=== PATIENT | female | born 1995 | race Hispanic/Latino ===

== ENCOUNTER 2022-03-12 06:47 | Day surgery (SDC) | payer OTHER ==
[~2022-03-12] VITALS: Ht 162.6 cm; Wt 77.5 kg
[~2022-03-12 06:47] MED LIST: LR 1,000 ML IV ONE; ceFAZolin SOD 2 GM in IV 1 EA IV ONE
[2022-03-12] MEDS ORDERED: fentaNYL 100 MCG/2 ML INJECTION IV PRN ×2 (07:01→12:10)
[2022-03-12] MEDS ORDERED: EPINEPHrine 1MG/ML INJ 30ML MD-VIAL As Ordered ONE (08:04)
[2022-03-12] MEDS ORDERED: LIDOCAINE 1% MDV 20ML VIAL As Ordered ONE (08:04)
[2022-03-12] MEDS ORDERED: ROPIvacaine 0.5% 30ML INJECTION (J2795 PER 1MG) XX ONE (08:15)
[2022-03-12] MEDS ORDERED: dexameTHASONE 10MG/1ML VIAL PRES.FREE (J1100 PER 1MG) XX ONE (08:15)
[2022-03-12] MEDS ORDERED: EPINEPHrine INJ 1 MG/ML 1ML AMP XX ONE (08:15)
[2022-03-12] MEDS: MIDAZOLAM INJ 2MG/2ML VIAL (J2250 PER 1MG) IV PRN ×2 (08:22→08:38)
[2022-03-12] MEDS ORDERED: MIDAZOLAM INJ 2MG/2ML VIAL (J2250 PER 1MG) As Ordered ONE (09:15)
[2022-03-12] MEDS ORDERED: fentaNYL 100 MCG/2 ML INJECTION As Ordered ONE (09:15)
[2022-03-12] MEDS ORDERED: ROCURONIUM BROMIDE 50 MG/5 ML VIAL As Ordered ONE (09:15)
[2022-03-12] MEDS ORDERED: propofoL 200 MG/20 ML VIAL As Ordered ONE ×2 (09:15→11:06)
[2022-03-12] MEDS ORDERED: ONDANSETRON 4MG/2ML VIAL As Ordered ONE (09:15)
[2022-03-12] MEDS ORDERED: dexameTHASONE 4 MG/ML 1ML VIAL (J1100 PER 1MG) As Ordered ONE (09:15)
[2022-03-12] MEDS ORDERED: LIDOCAINE 2% 100MG/5ML SDV (FOR ANES.) As Ordered ONE (09:15)
[2022-03-12] MEDS ORDERED: NEOSTIGMINE 10MG/10ML VIAL (J2710 PER 0.5MG) As Ordered ONE (09:40)
[2022-03-12] MEDS ORDERED: GLYCOPYRROLATE INJ 0.2 MG/ML 2 ML VIAL As Ordered ONE (09:41)
[2022-03-12] MEDS ORDERED: KETOROLAC 60MG 2ML VIAL As Ordered ONE (11:03)
[2022-03-12] MEDS ORDERED: LR 1,000 ML IV SCH ×2 (12:10)
[2022-03-12] MEDS ORDERED: ONDANSETRON 4MG/2ML VIAL IV PRN (12:10)
[2022-03-12] MEDS ORDERED: oxyCODONE 5MG TAB PO PRN (12:10)
[2022-03-12 13:34] VITALS: BP 97/62
== END 2022-03-12 13:37 | disposition home or self-care (01) ==
LOC: M SDC 06:47
PROVIDERS: ATTEND Orthopaedic Surgery
DX: M75.21 Bicipital tendinitis, right shoulder (principal); M75.41 Impingement syndrome of right shoulder; M75.51 Bursitis of right shoulder; E11.9 Type 2 diabetes mellitus without complications
CPT/HCPCS: 23430; 29824; 29826; 81025; C1713; J0171; J0690; J1100; J1885; J2250; J2405; J2710; J3010

== ENCOUNTER → 2022-11-24 | Outpatient (CLI) | payer OTHER | LOC: M PLAIMG 08:06 | PROVIDERS: ATTEND Family Medicine | DX: M54.2 Cervicalgia (principal) ==